=== PATIENT | female | born 1940 | race Caucasian/White ===

== ENCOUNTER → 2019-07-24 10:50 | Outpatient (CLI) | payer OTHER, SELFPAY ==
--- NOTE | 2019-07-24 11:15 | CER_PTH ---
PATIENT: YAHAIRA WALLIS LOC: [facility] U#:[id number] AGE/SX: 84/F ROOM: RE07/24/[address]: Dr. Ludwin Bravo MD : 1940 BED: DIS: SPEC #: [id number] RECD: 07/25/19 10:35 STATUS: LJ JASMIN #: [id number] SULEMA: 07/24/19 11:[address]: Ludwin Bravo DEPT: SURGICAL PATHOLOGY RECD BY: James Epps Tissues: Uterine cervix, NOS Procedures: Surgery Specimen Level IV HEADER OPERATION: Polypectomy PRE-OP DIAGNOSIS: Cervical polyp N84.1 TISSUE SUBMITTED: Cervical polyp MICROSCOPIC DIAGNOSIS Cervix polyp, biopsy: Polypoid fragment of benign ectocervical tissue. No evidence of dysplasia. AM:kevyn 07/26/19 MICROSCOPIC DESCRIPTION Slides are reviewed. GROSS DESCRIPTION Received in fixative is one container labeled with the patient's name and designated cervical polyp. The specimen consists of one irregular fragment of light vasques soft tissue that measures 1.2 x 1 x 0.3 cm. The specimen is totally submitted in one cassette. / AM:kevyn 07/25/19 TC:5 [facility]: [id number]
[2019-07-28 13:04] LABS: HPV Reflexed? NOT INDICATED
== END ==
PROVIDERS: Referring Provider Obstetrics & Gynecology; Visit Provider Obstetrics & Gynecology
DX: Z12.4 Encounter for screening for malignant neoplasm of cervix (principal)
CPT/HCPCS: 88175; 88305; G0145

== ENCOUNTER → 2019-08-07 15:00 | Outpatient (CLI) | payer OTHER, SELFPAY ==
--- NOTE | 2019-08-07 15:00 | EMB_PTH ---
PATIENT: YAHAIRA WALLIS LOC: [facility] U#:[id number] AGE/SX: 84/F ROOM: RE08/07/[address]: Dr. Ludwin Bravo MD : 1940 BED: DIS: SPEC #: [id number] RECD: 08/08/19 10:46 STATUS: LJ JASMIN #: [id number] SULEMA: 08/07/19 15:[address]: Ludwin Bravo DEPT: SURGICAL PATHOLOGY RECD BY: James Epps Tissues: Endometrium, NOS Procedures: Surgery Specimen Level IV HEADER OPERATION: Endometrial biopsy PRE-OP DIAGNOSIS: 627.1, 622.7 TISSUE SUBMITTED: Endometrial biopsy MICROSCOPIC DIAGNOSIS Endometrium, biopsy: Scant strips of benign superficial endometrium and endocervix. See comment. AM:kevyn 08/09/19 COMMENT The specimen primarily consists of mucoid material. Clinical correlation is suggested. MICROSCOPIC DESCRIPTION Slides are reviewed. GROSS DESCRIPTION Received in fixative is one container labeled with the patient's name and designated endometrial biopsy. The specimen consists of multiple irregular fragments of vasques mucoid tissue that in aggregate measure 3 x 1 x 0.3 cm. The specimen is totally submitted in one cassette. / TITO:kevyn 08/08/19 TC:5 CPT: 58694
== END ==
PROVIDERS: Referring Provider Obstetrics & Gynecology; Visit Provider Obstetrics & Gynecology
DX: N95.0 Postmenopausal bleeding (principal); N84.1 Polyp of cervix uteri
CPT/HCPCS: 88305

== ENCOUNTER 2019-09-12 05:58 | Day surgery (SDC) | payer SELFPAY ==
[2019-09-06 14:44] LABS: Hematocrit 40.8 % (37-47); Hemoglobin 13.3 g/dL (12.0-15.0); Mean Corp Hgb Conc 32.6 g/dL (32-36); Mean Corpuscular Hgb 28.8 pg (27.0-32.0); Mean Corpuscular Volume 88.3 fL (81-99); Mean Platelet Vol. 9.7 fl (6.2-12.0); Platelet Count 171 K/mm3 (150-450); RBC Distribution Width CV 13.9 % (11.6-14.6); RBC Distribution Width SD 45.2 fl (35.1-43.9); Red Blood Count 4.62 M/mm3 (4.2-5.4); White Blood Count 5.4 K/mm3 (4.4-11.0)
[2019-09-06 14:54] LABS: Partial Thromboplast Time 31.2 Seconds (24.1-36.2)
[2019-09-06 15:05] LABS: AST(SGOT) 20 U/L (15-37); Alanine Aminotransfer ALT/SGPT 21 U/L (13-56); Albumin, Serum 3.6 g/dL (3.2-5.0); Alkaline Phosphatase 80 U/L (45-117); Anion Gap 4 (5-15); BUN 14 mg/dL (7-18); BUN/Creat Ratio 15.7 RATIO (10-20); Calcium,Total 8.6 mg/dL (8.5-10.1); Chloride 104 mmol/L (98-107); Creatinine, Serum 0.89 mg/dL (0.55-1.02); EST Glomerular Filtration Rate 65 mL/min (>60); Est Glom Filt Rate - Afr Amer 79 mL/min (>60); Globulin 3.7 g/dL (2.2-4.2); Glucose 98 mg/dL (74-106); Potassium 4.1 mmol/L (3.5-5.1); Protein, Total 7.3 g/dL (6.4-8.2); Sodium Level 140 mmol/L (136-145)
[2019-09-12] VITALS (8 sets, daily range): BP systolic 102–129; BP diastolic 66–84; PULSE 57–63; RESP 16; TEMP 16.1–36.8; O2SAT 96–100; BMI 34.0
[2019-09-12] MEDS: Lactated Ringers 1,000 ML 100 ML IV (06:46)
--- NOTE | 2019-09-12 08:00 | ECC_PTH ---
PATIENT: YAHAIRA WALLIS LOC: [facility] – [place] U#:[id number] AGE/SX: 78/F ROOM: RE09/12/[address]: Dr. Ludwin Bravo MD : 1940 BED: DIS: 09/12/2019 SPEC #: [id number] RECD: 09/12/19 10:52 STATUS: LJ JASMIN #: [id number] SULEMA: 09/12/19 08:[address]: Ludwin Bravo DEPT: SURGICAL PATHOLOGY RECD BY: Garrick De La Rosa ENTERED: 09/12/19 11:49 SP TYPE: ECC TIKA DR: Dr. Chiquis Hernandez MD Tissues: A - Endocervical B - Endometrial cavity Procedures: Surgery Specimen Level IV HEADER OPERATION: Hysteroscopy, dilation and curettage PRE-OP DIAGNOSIS: Endometrial polyp TISSUE SUBMITTED: A. Endocervical curettings, B. Endometrial curettings MICROSCOPIC DIAGNOSIS A. Endocervical curettings: A polypoid fragment of benign endometrial tissue. Benign endocervical epithelial cells and mucous. B. Endometrial curettings: Polypoid fragments of endometrial tissue consistent with endometrial polyp with simple cystic hyperplasia without atypia. SJ:kevyn 09/13/19 COMMENT Please make reference to previous specimen ([id number]) cervical polyp, biopsy with diagnosis of polypoid fragment of benign endocervical tissue and [id number]) endometrium, biopsy with diagnosis of scant strips of benign superficial endometrium and endocervix. MICROSCOPIC DESCRIPTION Slides are reviewed. GROSS DESCRIPTION A - Received in fixative is one container labeled with the patient's name and designated endocervical curettings. The specimen consists of multiple irregular fragments of light vasques mucoid material that in aggregate measure 1.5 x 1 x <0.1 cm. The specimen is totally submitted in one cassette. B - Received in fixative is one container labeled with the patient's name and designated endometrial. The specimen consists of multiple irregular and elongated fragments of pink-vasques soft tissue that in aggregate measure 5.5 x 3 x 0.2 cm. The specimen is totally submitted in two cassettes. / AM:kevyn 09/12/19 TC:5 CPT: 34158 x2
--- NOTE | 2019-09-12 08:13 | PCM.HP.BLA ---
History and Physical Date of Admission: 09/12/19 Surgical History and Physical Date: 09/12/2019 Name: SALVADOR DOZIER Age: 78 Date of : 1940 Salvador Dozier, a 78 year old female 11 0 1 0 11, presents for D and C with Hysteroscopy on September 12, 2019 at 8:00. 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 Hernandez for possible cervical polyp or PMB. 78 y.o. G 12 P 11 post-menopausal non-smoker and reports that she has had no bleeding since the end of April after eating some hot peppers, then she bled. Adds that she had a D and C four years ago after her last episode of bleeding from cervical polyps. Verbal history of all normal pap screenings with last approximately twenty years ago. Medications and Allergies listed. 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 She had an episode of postmenopausal bleeding in Apr 2019. Her PCP is questioning cervical polyp vs uterine polyp or something. JT agatha Franco presents here today with her daughter for pre-op for Hysteroscopy D and C with JW at [facility] on 09-12-19. 78 y.o. G 12 P 11 post-menopausal non-smoker and denies new language pathologist problems or concerns at this time. Questions answered and consents signed. Medication and Allergy lists up-dated. SABA All questions answered. Thick EM which began last bleeding. Saloma claims it started suddenly and has been present 2 months since last bleeding. It occurs intermittantly. It is located in the vagina.; It is located in the cervix. Saloma characterizes it to be non-radiating. Saloma characterizes the quality pressure.; Saloma characterizes the quality Bleeding. Severity is moderate and not improving; Associated signs and symptoms are had benign polyp removed from cervix a few weeks ago. MEDICATIONS HISTORY: ALLERGIES: No Known Allergies Infections - Chicken pox and Measles Illnesses - no serious past illnesses Accidents - None Hospitalizations - see surgery Review of Systems: GENERAL - Denies fever, or chills SKIN - Denies skin changes EYES - Denies visual changes EARS - Denies difficulty hearing NOSE - Denies nasal congestion or bleeding MOUTH - Denies sore throat or difficulty swallowing NECK - Denies pain or swelling RESPIRATORY - Denies shortness of breath or wheezing CARDIOVASCULAR - Denies palpitations or chest pain GASTROINTESTINAL - Denies nausea, vomiting, diarrhea, constipation GENITOURINARY - Denies dysuria, frequency of urination, incontinence of urine MUSCULOSKELETAL - Denies joint or muscle pain NEUROLOGICAL - Denies localized numbness or weakness PSYCHIATRIC - Denies depression or anxiety ENDOCRINE - Denies heat or cold intolerance, weight loss or gain HEMATO-IMMUNOLOGIC - Denies excesive bleeding with cuts SOCIAL HISTORY: Alcohol Use - None Smoking - Never Diet - no special diet Lifestyle - moderate stress lifestyle and Exercise - active work Seat Belt Use - occasional Employer - [employer] Illicit Drug Use - None Sexual Activity - Spouse-Sig Other Name - Melinda Spouse-Sig Other Occupation - Retired Children Name(s) - 11 children Control - postmenopausal FAMILY HISTORY: MENSTRUAL HISTORY: LMP Known?- Postmenopausal PAST PREGNANCIES: Total Pregnancies - 12; Full Term Pregnancies - 11; Premature - 0; Abortions, Induced - 0; Abortions, Spontaneous - 1; Ectopics - 0; Multiple Births - 0; Living Children - 11 SURGICAL HISTORY: 1. D and C, 2014 ; - 2. 2016 Bilateral Knee Replacement ; - 3. 2000 Bladder Tuck ; - PHYSICAL EXAM BP- 120/68 Sitting, Right arm, regular cuff Weight- 202.55415 lbs Height- 65 inch BMI:33.68 CONSTITUTIONAL - NAD, well nourished, and well developed NEUROLOGICAL - Cranial nerves II-XII grossly intact PSYCHIATRIC - A and O to time, place, person, mood and affect External Genitial Vagina - non-tender without lesions Urethra/Urethral Meatus - non-tender Bladder - non-tender Vagina - loss of rugae Cervix - without cervical motion tenderness and has normal size and features without evident lesions Uterus - 5-6 cm in size, mobile and nontender Adnexa - clear without massess or tenderness ASSESSMENT/PLAN: 1. Postmenopausal Bleeding Reviewed U/S with pt and daughter showing 18 mm lining. Suspect EM polyp. Plan to proceed with Jill and C. Al questions answered.
--- NOTE | 2019-09-12 08:29 | PCM.OPRPT ---
Report of Operation Date of Procedure: 09/12/19 Pre-Operative Diagnosis: Postmenopausal Bleeding, Thickened Endometrial Lining Post-Operative Diagnosis: Postmenopausal Bleeding, Thickened Endometrial Lining Surgery/Procedure Performed:: Diagnostic Hysteroscopy and Fractional D&C Description of Surgical Findings:: 8 cm endometrial cavity with multiple multiple 2 cm endometrial polyps. Type of Anesthesia:: MAC Anesthesiologist: Wale Sandhu Specimen's removed: Endometrial and endocervical curettings Estimated Blood Loss (mL): Minimal Fluids Replaced: Crystalloid Description of Procedure: Surgeon: Ludwin Bravo MD, FACOG Indications: This is a 78 year old patient who has the above diagnosis. The patient has been counseled regarding the risk and indications of this procedure including the possibility of bleeding, infection, and injury to surrounding structures such as bowel bladder. All questions were answered and we consider the patient well-informed. Procedure: The patient was taken to the operating room where after induction of general anesthesia, she was placed in the dorsolithotomy position and prepped and draped in the usual sterile fashion. Anterior cervix was grasped with the tenaculum and dilated to about 4-5 mm. A 3 mm hysteroscope was placed in the uterus of the above findings were noted. Cervix was dilated to about 7-8 mm and uterus was gently curetted removing all contents. Hysteroscope was reinserted and all material was noted to be removed. In the course of the procedure approximately 100 cc of saline distending media was used and virtually all of this was recovered. Patient tolerated procedure well was taken to recovery room in satisfactory condition sponge instrument and needle counts were all reportedly correct. Estimated blood loss for the case was minimal. Specimens to pathology was endometrial curettings and endocervical curettings Complications: None Grafts/Implants Used: None - Complications None - Admit VTE Documentation VTE Present on Admission: Yes VTE Mechan Device Prophylaxis: SCD's
--- NOTE | 2019-09-12 08:53 | DCINST_ITS ---
Discharge Diet: No Restrictions Discharge Activity: Return to Normal Activity, May Shower, May Take a Tub Bath May resume sexual activity in: 3 weeks Call your doctor if you observe: Fever of 101 or Higher, Inability to urinate, Inability to have a bowel movement, Using more than one pad per hour Allergies/Adverse Reactions: Allergies No Known Allergies Allergy (Verified 09/12/19 06:27) Medications to take at Discharge Calcium/Vits D3/C/K2/Minerals [Bone Essentials Capsule] 2 tab PO DAILY 09/07/19 Chayenne Pepper 1 cap PO DAILY 09/07/19 Cinnamon Bark [Cinnamon] 500 mg PO DAILY 09/07/19 Multivit with Calcium,Iron,Min [Multiple Vitamins For Women] 1 ea PO DAILY 09/07/19 Turmeric Root Extract [Turmeric] 500 mg PO DAILY 09/07/19 Primary Care Physician: Chiquis Hernandez MD [Primary Care Provider] - Test Results: Test results from this visit will be discussed in further detail at your follow- up appointment, if applicable. Please Follow Up With: Ludwin Bravo MD When: 2 to 3 weeks
[2019-09-12] MEDS: HYDROcodone Bitartrate/Apap 5/325 Tablet PO (09:56)
== END 2019-09-12 10:48 | disposition home or self-care (01) ==
LOC: SDC 05:59 → AC 05:59
PROVIDERS: Family Provider Family Medicine; PCP Family Medicine; Referring Provider Obstetrics & Gynecology; Visit Provider Obstetrics & Gynecology
PROC: 0UDB8ZZ Extraction of Endometrium, Via Natural or Artificial Opening Endoscopic (ICD-10-PCS; CPT 58558; principal; 2019-09-12 07:50)
DX: N95.0 Postmenopausal bleeding (principal); N85.01 Benign endometrial hyperplasia; R93.89 Abnormal findings on diagnostic imaging of other specified body structures
CPT/HCPCS: 58558; 36415; 80053; 85027; 85610; 85730; 86850; 86900; 86901; 88305; J7120